=== PATIENT | female | born 1960 ===

== ENCOUNTER → 2020-06-27 | Outpatient (CLI) | payer OTHER ==
[~2020-06-27] MED LIST: LOW DOSE ASPIRI81 M1
[2020-07-02 16:07] LABS: HPV 16 Negative (Negative); HPV 18 Negative (Negative); HPV OTHER HR TYPES Negative (Negative)
== END | disposition home or self-care (01) ==
LOC: LAB 15:25 → LAB SHORT 15:25
PROVIDERS: Family Medicine
DX: Z01.419 Encounter for gynecological examination (general) (routine) without abnormal findings (principal)
CPT/HCPCS: 87624; G0145

== ENCOUNTER 2020-07-24 11:45 | Day surgery (SDC) | payer OTHER ==
[~2020-07-24] VITALS: Ht 167.6 cm; Wt 63.4 kg
[2020-07-24] MEDS ORDERED: LOW DOSE ASPIRI81 M1 (12:17)
== END 2020-07-24 14:15 | disposition home or self-care (01) ==
LOC: ORSCSDS 11:45
PROVIDERS: Surgery
PROC: 0JBD0ZZ Excision of Right Upper Arm Subcutaneous Tissue and Fascia, Open Approach (ICD-10-PCS; principal; 2020-07-24 13:00)
DX: D17.1 Benign lipomatous neoplasm of skin and subcutaneous tissue of trunk (principal); R73.03 Prediabetes
CPT/HCPCS: 82947; 88304